=== PATIENT | male | born 1940 | race African-American/Black ===

== ENCOUNTER → 2017-04-20 07:29 | Outpatient (CLI) | payer MEDICARE ==
[2017-04-20 07:51] LABS: BASOPHILS 0.6 % (0-2); EOSINOPHILS 6.5 % (0-7); HEMATOCRIT 28.3 % (42.0-54.0); HEMOGLOBIN 8.3 g/dL (13.5-17.5); IMMATURE GRANULOCYTES 0.2 % (0-5); LYMPHOCYTES 37.2 % (15-50); MCHC 29.3 g/dL (31.0-37.0); MCV 56.5 fL (80.0-100.0); NEUTROPHILS 37.5 % (40-80); RBC 5.01 10x6/uL (4.20-6.10); RDW 21.1 % (11.5-14.5); WBC 4.9 10x3/uL (4.8-10.8)
[2017-04-20 07:55] LABS: MCH 16.6 pg (26.0-34.0); PLATELET COUNT 179 10x3/uL (130-400)
[2017-04-20 08:20] LABS: ALBUMIN 3.7 g/dL (3.4-5.0); ANION GAP 13.1 mmol/L (8-16); BILIRUBIN - TOTAL 0.55 mg/dL (0.2-1.3); CALCIUM 8.6 mg/dL (8.5-10.1); CARBON DIOXIDE 24.3 mmol/L (21.0-32.0); CHOL - HDL RATIO 2.3 ratio (2.3-4.9); CREATININE - SERUM 1.3 mg/dL (0.6-1.3); LDL-HDL RATIO 1.2 ratio (1.5-3.5); POTASSIUM - SERUM 4.4 mmol/L (3.5-5.1); PROTEIN - SERUM 7.4 g/dL (6.4-8.2); THYROID STIMULATING HORMONE 1.25 uIU/mL (0.36-3.74); URIC ACID 7.3 mg/dL (2.6-7.2)
[2017-04-20 08:27] LABS: SCREENING PSA (YEARLY) 0.84 ng/mL (0.00-4.00)
== END | disposition home or self-care (01) ==
LOC: D.LAB 07:29
PROVIDERS: Family Medicine
DX: Z00.00 Encounter for general adult medical examination without abnormal findings (principal); N40.0 Benign prostatic hyperplasia without lower urinary tract symptoms; M19.90 Unspecified osteoarthritis, unspecified site; I10 Essential (primary) hypertension; E78.5 Hyperlipidemia, unspecified; I25.10 Atherosclerotic heart disease of native coronary artery without angina pectoris; M10.9 Gout, unspecified

== ENCOUNTER → 2017-04-21 17:13 | Outpatient (CLI) | payer MEDICARE | END | disposition home or self-care (01) | LOC: D.LAB 17:13 | DX: D64.9 Anemia, unspecified (principal) ==

== ENCOUNTER → 2017-05-18 07:42 | Outpatient (CLI) | payer MEDICARE ==
[2017-05-18 08:01] LABS: BASOPHILS 0.1 % (0-2); EOSINOPHILS 2.5 % (0-7); HEMATOCRIT 26.4 % (42.0-54.0); HEMOGLOBIN 7.7 g/dL (13.5-17.5); IMMATURE GRANULOCYTES 0.1 % (0-5); LYMPHOCYTES 18.5 % (15-50); MCHC 29.2 g/dL (31.0-37.0); MCV 57.5 fL (80.0-100.0); MONOCYTES 12.2 % (2-11); NEUTROPHILS 66.6 % (40-80); PLATELET COUNT 179 10x3/uL (130-400); RBC 4.59 10x6/uL (4.20-6.10); RDW 21.1 % (11.5-14.5); WBC 7.2 10x3/uL (4.8-10.8)
[2017-05-18 08:12] LABS: MCH 16.8 pg (26.0-34.0)
== END | disposition home or self-care (01) ==
LOC: D.LAB 07:42
PROVIDERS: Family Medicine
DX: D64.9 Anemia, unspecified (principal)

== ENCOUNTER → 2017-05-20 08:03 | Outpatient (CLI) | payer MEDICARE ==
[2017-05-20 09:06] LABS: BASOPHILS 0.2 % (0-2); EOSINOPHILS 6.9 % (0-7); HEMATOCRIT 27.1 % (42.0-54.0); IMMATURE GRANULOCYTES 0.7 % (0-5); LYMPHOCYTES 27.6 % (15-50); MCHC 29.5 g/dL (31.0-37.0); MCV 56.9 fL (80.0-100.0); MONOCYTES 12.8 % (2-11); NEUTROPHILS 51.8 % (40-80); RBC 4.76 10x6/uL (4.20-6.10); RDW 21.2 % (11.5-14.5); WBC 4.2 10x3/uL (4.8-10.8)
[2017-05-20 09:10] LABS: MCH 16.8 pg (26.0-34.0); PLATELET COUNT 223 10x3/uL (130-400)
[2017-05-20 09:20] LABS: % SATURATION 6 % (15-55); IRON 20 ug/dl (35-150); TOTAL IRON BIND CAPACITY 325 ug/dl (260-445); UNSAT IRON BIND CAPACITY 305 ug/dl (150-375)
[2017-05-21 08:20] LABS: FOLATE (FOLIC ACID) - SERUM 15.2 ng/mL (>3.0)
== END | disposition home or self-care (01) ==
LOC: D.LAB 08:03
PROVIDERS: Family Medicine
DX: D64.9 Anemia, unspecified (principal)

== ENCOUNTER → 2017-05-26 14:57 | Outpatient (CLI) | payer MEDICARE | END | disposition home or self-care (01) | LOC: D.RAD 10:30 | DX: D64.9 Anemia, unspecified (principal) ==

== ENCOUNTER → 2017-07-20 13:51 | Outpatient (CLI) | payer MEDICARE ==
[2017-07-20 14:16] LABS: BASOPHILS 0.5 % (0-2); HEMATOCRIT 37.2 % (42.0-54.0); HEMOGLOBIN 11.5 g/dL (13.5-17.5); IMMATURE GRANULOCYTES 0.3 % (0-5); LYMPHOCYTES 37.3 % (15-50); MCHC 30.9 g/dL (31.0-37.0); MCV 63.5 fL (80.0-100.0); MONOCYTES 11.4 % (2-11); NEUTROPHILS 44.5 % (40-80); RBC 5.86 10x6/uL (4.20-6.10); WBC 3.7 10x3/uL (4.8-10.8)
[2017-07-20 14:18] LABS: MCH 19.6 pg (26.0-34.0); PLATELET COUNT 111 10x3/uL (130-400)
[2017-07-20 14:39] LABS: % SATURATION 23 % (15-55); IRON 71 ug/dl (35-150); TOTAL IRON BIND CAPACITY 304 ug/dl (260-445); UNSAT IRON BIND CAPACITY 233 ug/dl (150-375)
== END | disposition home or self-care (01) ==
LOC: D.LAB 08:00
PROVIDERS: Family Medicine
DX: D50.9 Iron deficiency anemia, unspecified (principal)

== ENCOUNTER → 2017-09-08 17:48 | Outpatient (CLI) | payer MEDICARE | END | disposition home or self-care (01) | LOC: D.RAD 17:48 | DX: I25.10 Atherosclerotic heart disease of native coronary artery without angina pectoris (principal); M25.662 Stiffness of left knee, not elsewhere classified; M25.661 Stiffness of right knee, not elsewhere classified; M79.605 Pain in left leg; M79.604 Pain in right leg ==

== ENCOUNTER → 2018-01-17 16:10 | Outpatient (CLI) | payer MEDICARE | END | disposition home or self-care (01) | LOC: D.RAD 16:10 | DX: M10.9 Gout, unspecified (principal); M79.672 Pain in left foot ==

== ENCOUNTER → 2018-01-19 15:28 | Outpatient (CLI) | payer MEDICARE ==
[2018-01-19 16:15] LABS: ALBUMIN 3.4 g/dL (3.4-5.0); ANION GAP 13.2 mmol/L (8-16); BILIRUBIN - TOTAL 0.53 mg/dL (0.2-1.3); CALCIUM 8.1 mg/dL (8.5-10.1); CARBON DIOXIDE 25.1 mmol/L (21.0-32.0); CREATININE - SERUM 1.3 mg/dL (0.6-1.3); POTASSIUM - SERUM 4.3 mmol/L (3.5-5.1); PROTEIN - SERUM 7.2 g/dL (6.4-8.2); URIC ACID 5.8 mg/dL (2.6-7.2)
== END | disposition home or self-care (01) ==
LOC: D.LAB 15:28
PROVIDERS: Family Medicine
DX: M79.671 Pain in right foot (principal); M10.071 Idiopathic gout, right ankle and foot; M1A.9XX0 Chronic gout, unspecified, without tophus (tophi)

== ENCOUNTER → 2018-06-29 10:55 | Outpatient (CLI) | payer MEDICARE ==
[2018-06-29 12:29] LABS: BASOPHILS 0.2 % (0-2); EOSINOPHILS 2.9 % (0-7); HEMATOCRIT 40.5 % (42.0-54.0); HEMOGLOBIN 13.7 g/dL (13.5-17.5); IMMATURE GRANULOCYTES 0.2 % (0-5); LYMPHOCYTES 36.5 % (15-50); MCH 24.9 pg (26.0-34.0); MCHC 33.8 g/dL (31.0-37.0); MCV 73.6 fL (80.0-100.0); MEAN PLATELET VOLUME 10.3 fL (7.4-10.4); MONOCYTES 12.5 % (2-11); NEUTROPHILS 47.7 % (40-80); PLATELET COUNT 115 10x3/uL (130-400); RDW 15.9 % (11.5-14.5); WBC 4.2 10x3/uL (4.8-10.8)
[2018-06-29 12:58] LABS: ALBUMIN 3.7 g/dL (3.4-5.0); ANION GAP 8.1 mmol/L (8-16); BILIRUBIN - TOTAL 0.45 mg/dL (0.2-1.3); CALCIUM 8.9 mg/dL (8.5-10.1); CARBON DIOXIDE 29.7 mmol/L (21.0-32.0); CHOL - HDL RATIO 2.9 ratio (2.3-4.9); CREATININE - SERUM 1.2 mg/dL (0.6-1.3); LDL-HDL RATIO 1.7 ratio (1.5-3.5); POTASSIUM - SERUM 4.8 mmol/L (3.5-5.1); PROTEIN - SERUM 7.3 g/dL (6.4-8.2); THYROID STIMULATING HORMONE 0.63 uIU/mL (0.36-3.74)
== END | disposition home or self-care (01) ==
LOC: D.LAB 10:55
PROVIDERS: Family Medicine
DX: R63.4 Abnormal weight loss (principal); R73.9 Hyperglycemia, unspecified; R53.83 Other fatigue; I73.9 Peripheral vascular disease, unspecified; I10 Essential (primary) hypertension; I25.10 Atherosclerotic heart disease of native coronary artery without angina pectoris; Z00.00 Encounter for general adult medical examination without abnormal findings

== ENCOUNTER → 2018-10-06 08:46 | Outpatient (CLI) | payer MEDICARE | END | disposition home or self-care (01) | LOC: D.CT 08:00 | DX: I70.219 Atherosclerosis of native arteries of extremities with intermittent claudication, unspecified extremity (principal) ==

== ENCOUNTER → 2019-05-01 11:35 | Outpatient (CLI) | payer MEDICARE ==
[2019-05-01 12:14] LABS: BASOPHILS 0.5 % (0-2); HEMATOCRIT 41.8 % (42.0-54.0); HEMOGLOBIN 13.9 g/dL (13.5-17.5); IMMATURE GRANULOCYTES 0.2 % (0-5); LYMPHOCYTES 32.5 % (15-50); MCH 24.2 pg (26.0-34.0); MCHC 33.3 g/dL (31.0-37.0); MCV 72.7 fL (80.0-100.0); MEAN PLATELET VOLUME 10.1 fL (7.4-10.4); NEUTROPHILS 45.8 % (40-80); PLATELET COUNT 121 10x3/uL (130-400); RBC 5.75 10x6/uL (4.20-6.10); RDW 15.5 % (11.5-14.5); WBC 4.1 10x3/uL (4.8-10.8)
[2019-05-01 13:04] LABS: ALBUMIN 3.5 g/dL (3.4-5.0); ANION GAP 8.1 mmol/L (8-16); BILIRUBIN - TOTAL 0.39 mg/dL (0.2-1.3); CARBON DIOXIDE 31.6 mmol/L (21.0-32.0); CHOL - HDL RATIO 3.5 ratio (2.3-4.9); CREATININE - SERUM 1.2 mg/dL (0.6-1.3); POTASSIUM - SERUM 4.7 mmol/L (3.5-5.1); PROTEIN - SERUM 7.4 g/dL (6.4-8.2); THYROID STIMULATING HORMONE 0.59 uIU/mL (0.36-3.74)
== END | disposition home or self-care (01) ==
LOC: D.LAB 11:35
PROVIDERS: ATTEND Family Medicine
DX: G62.9 Polyneuropathy, unspecified (principal); E78.5 Hyperlipidemia, unspecified; I25.10 Atherosclerotic heart disease of native coronary artery without angina pectoris; E55.9 Vitamin D deficiency, unspecified; D64.9 Anemia, unspecified; M54.5 Low back pain

== ENCOUNTER → 2019-10-20 14:28 | Outpatient (CLI) | payer MEDICARE | END | disposition home or self-care (01) | LOC: D.LAB 14:28 | PROVIDERS: ATTEND Family Medicine | DX: M79.674 Pain in right toe(s) (principal) ==

== ENCOUNTER → 2019-11-09 12:53 | Outpatient (CLI) | payer MEDICARE ==
[~2019-11-09 12:53] MED LIST: BAYER CHEWABLE81 MG PO; COREG 3.1253.125 MG PO; EC-NAPROSYN500 MG; GABAPENTIN300 MG PO; ISOSORBIDE MONO60 M1 PO; NITROSTAT0.4 MG SL; PLAVIX75 MG PO; PRAVACHOL20 MG PO; RANEXA500 MG PO; ULTRAM50 MG PO
[2019-11-10 17:26] VITALS: BMI 25.1
--- NOTE | 2019-11-13 08:28 | EC ---
PATIENT:EMIGDIO FLORES DATE OF SERVICE: 11/09/19 SEX: M MEDICAL RECORD: [id number] DATE OF : 36 [facility] AGE OF PATIENT: 78 ADMISSION DATE: 11/09/19 REFERRING PHYSICIAN: INTERPRETING PHYSICIAN: TRUNG URRUTIA MD ECHOCARDIOGRAM REPORT ECHO CHARGES 4 ECHO COMPLETE Date: 11/09/19 CLINICAL DIAGNOSIS: CAD HX OF MR/TR/AI/PVD/HTN ECHOCARDIOGRAPHIC MEASUREMENTS (adult normal given) AC root (d.<3.7cm) 3.8 cm LV Septum d (<1.2 cm> 1.2 cm Valve Excursion 1.6 cm LV Septum (systole) 1.6 cm Left Atria (s.<4.0cm> 3.7 cm LVPW d(<1.2cm) 1.4 cm RV (d.<2.3cm) 3.3 cm LVPW (sytole) 1.8 cm LV diastole(<5.6CM) 4.1 cm MV E-F(>70mm/sec) cm LV systole 2.3 cm LVOT Diameter 1.6 cm MV exc.(>10mm) 1.4 cm Est.ejection fraction (50-75%) % DOPPLER: LVIT cm/sec A 115.0cm/sec E 38.0 cm/sec LA cm/sec RVSP 23 mmHg LVOT 102 cm/sec AOP1/2T m/s Asc. Ao 120 cm/sec RVOT 119 cm/sec RA cm/sec PA 111 cm/sec AV Gradient Peak 5.72 mmHg AV Mean 3.54 mmHg AV Area 1.9 cm MV Gradient Peak 7.04 mmHg MV Mean 2.16 mmHg MV Area cm COMMENTS: Regional Sales Engineer: 2 MELECIO BORJAS Fur Cutter: 3 Dr. Chandler TAPE# PACS Pericardial Effusion N DATE OF SERVICE: Adequate 2D, color flow imaging, spectral Doppler, and M-Mode. LVH is present. LV internal dimensions are normal. Wall motion is normal. EF is greater than or equal to 55%. Aortic valve is sclerotic. There is no evidence of stenosis by Doppler interrogation. Left atrium is normal at 3.7 cm. Mitral valve shows no prolapse. Trace MR. Right-sided chambers are grossly normal. Trace TR. ECHOCARDIOGRAM REPORT [id number] EMIGDIO FLORES TRANSINT:[id number] Voice Confirmation ID: [id number] DOCUMENT ID: [id number] TRUNG URRUTIA MD at 0828 CC: [id number] DICTATION DATE: 11/10/191426 PHARMACY INNOVATION ASSISTANT: 11/10/19 2302 DEP CLI 11/09/19 [place] [id number] [place] [id number]
== END | disposition home or self-care (01) ==
LOC: D.HCCECHO 11-08 09:30
PROVIDERS: ATTEND Internal Medicine Interventional Cardiology
DX: I25.10 Atherosclerotic heart disease of native coronary artery without angina pectoris (principal)

== ENCOUNTER 2019-12-14 21:30 | Emergency (ER) | payer MEDICARE ==
[~2019-12-14] VITALS: Ht 170.2 cm; Wt 68.0 kg
[2019-12-14 21:35] VITALS: Ht 170.2 cm; Wt 68.0 kg
[2019-12-14] MEDS ORDERED: CATAPRES0.1 MG PO (21:55)
[2019-12-14 22:08] VITALS: BP 122/73
== END 2019-12-14 22:10 | disposition home or self-care (01) ==
LOC: D.ER 21:30
DX: I10 Essential (primary) hypertension (principal); Z95.1 Presence of aortocoronary bypass graft